=== PATIENT | male | born 1965 | race African-American/Black ===

== ENCOUNTER 2023-05-17 12:25 | Inpatient (IN) | payer OTHER ==
[2023-05-17 13:14] VITALS: BMI 22.5
[2023-05-17] MEDS ORDERED: IBUPROFEN 400 MG TABLET (FP) PO PRN (14:01)
[2023-05-17] MEDS ORDERED: POLYETHYLENE GLYCOL (HEALTHYLAX) 3350 17 GM PACKET PO PRN (14:01)
[2023-05-17] MEDS ORDERED: MAG HYDROX/AL HYDROX/SIMETH 30 ML UNIT-DOSE CUP PO PRN (14:01)
[2023-05-17] MEDS ORDERED: BISMUTH SUBSALICYLATE 524 MG/30 ML PO PRN (14:01)
[2023-05-17] MEDS ORDERED: ACETAMINOPHEN 325 MG TABLET (FP) PO PRN (14:01)
[2023-05-17] MEDS ORDERED: MAGNESIUM HYDROX 2400MG/30ML ORAL SUSPENSION 30 ML CUP PO PRN (14:01)
[2023-05-17] MEDS ORDERED: BENZOCAINE/MENTHOL (CHLORASEPTIC ) LOZENGE MM PRN (14:01)
[2023-05-17] MEDS ORDERED: guaiFENesin 600 MG TABLET.ER (FP) PO PRN (14:01)
[2023-05-17] MEDS ORDERED: ONDANSETRON *ODT* 4 MG TABLET SL PRN (14:01)
[2023-05-17] MEDS ORDERED: BENZONATATE 200 MG CAPSULE PO PRN (14:01)
[2023-05-17] MEDS ORDERED: hydrOXYzine PAMOATE 25 MG CAPSULE (FP) PO PRN (14:01)
[2023-05-17] MEDS ORDERED: NALOXONE HCL 0.4 MG/ML VIAL IM PRN (14:01)
[2023-05-17] MEDS ORDERED: LOPERAMIDE HCL 2 MG CAPSULE PO PRN (14:01)
[2023-05-17] MEDS ORDERED: IBUPROFEN 600 MG TABLET (FP) PO PRN (14:01)
[2023-05-17] MEDS ORDERED: DICYCLOMINE HCL 10 MG CAPSULE PO PRN (14:01)
[2023-05-17] MEDS ORDERED: NALOXONE HCL (KLOXXADO) 8 MG SPRAY NS PRN (14:01)
[2023-05-17] MEDS ORDERED: LORazepam 1 MG TABLET PO PRN (14:56)
[2023-05-17] MEDS ORDERED: ONDANSETRON *ODT* 4 MG TABLET ONE (14:57)
[2023-05-17] MEDS ORDERED: METHOCARBAMOL 500 MG TABLET ONE (14:57)
[2023-05-17] MEDS: PRENATAL VITAMINS W/ FOLIC ACID TABLET (FP) PO SCH (15:43)
[2023-05-17] MEDS: NICOTINE 21 MG/24 HOURS TOPICAL PATCH TD SCH (15:43)
[2023-05-17] MEDS: METHOCARBAMOL 500 MG TABLET PO PRN (15:44)
[2023-05-17] MEDS: LORazepam 2 MG TABLET PO SCH ×2 (17:37→22:50)
[2023-05-17] MEDS: THIAMINE HCL 100 MG TABLET (FP) PO SCH (22:50)
[2023-05-17] MEDS: MELATONIN 5 MG TABLETS PO SCH (22:50)
[2023-05-18] MEDS ORDERED: ALBUTEROL SO4 HFA INHALER IH ONE (01:05)
[2023-05-18] MEDS: LORazepam 2 MG TABLET PO SCH ×4 (04:54→22:52)
[2023-05-18] MEDS ORDERED: LISINOPRIL 20 MG TABLET PO ONE ×2 (06:00→10:00)
[2023-05-18] MEDS ORDERED: HYDROCHLOROTHIAZIDE 25 MG TABLET (FP) PO ONE ×2 (06:00→10:00)
[2023-05-18 09:24] LABS: HEMOGLOBIN 11.4 GM/dL (11.7-16.9); MCH 27.1 pg (25.7-33.7); MCHC 32.6 g/dl (32.0-35.9); MEAN CELL VOLUME 83.1 fl (80-96); MEAN PLT VOLUME 8.5 fl (7.5-11.1); PLATELET COUNT 273 10^3/uL (134-434); RBC 4.21 M/mm3 (4.00-5.60); RDW 14.3 % (11.9-15.9); WHITE BLOOD COUNT 4.5 K/mm3 (4.0-10.0)
[2023-05-18 09:25] LABS: POTASSIUM 4.3 mmol/L (3.5-5.1)
[2023-05-18 09:32] LABS: ALBUMIN 3.4 g/dl (3.4-5.0); BLOOD UREA NITROGEN 26.9 mg/dL (7-18)
[2023-05-18 09:35] LABS: BILIRUBIN,TOTAL 0.1 mg/dL (0.2-1)
[2023-05-18 09:39] LABS: CALCIUM 8.7 mg/dL (8.5-10.1)
[2023-05-18] MEDS: PRENATAL VITAMINS W/ FOLIC ACID TABLET (FP) PO SCH (10:18)
[2023-05-18] MEDS: amLODIPine BESYLATE 10 MG TABLET (FP) PO SCH (10:19)
[2023-05-18] MEDS: NICOTINE 21 MG/24 HOURS TOPICAL PATCH TD SCH (10:21)
[2023-05-18] MEDS ORDERED: PATIENT'S OWN MEDICATION (NON-FORMULARY) (Lisinopril/Hydrochlorothiazide [Lisinopril-Hctz PO SCH (10:45)
[2023-05-18] MEDS ORDERED: amLODIPine BESYLATE 10 MG TABLET (FP) PO SCH (10:45)
[2023-05-18] MEDS ORDERED: methaDONE HCL 10 MG TABLET (FOR DETOX USE ONLY) PO ONE (12:00)
[2023-05-18] MEDS: THIAMINE HCL 100 MG TABLET (FP) PO SCH (21:15)
[2023-05-18] MEDS: MELATONIN 5 MG TABLETS PO SCH (21:15)
[2023-05-18] MEDS: METHOCARBAMOL 500 MG TABLET PO PRN (21:15)
[2023-05-18] MEDS: cloNIDine HCL 0.1 MG TABLET PO PRN (21:18)
[2023-05-19] MEDS ORDERED: ALBUTEROL SO4 HFA INHALER IH PRN (01:46)
[2023-05-19] MEDS: LORazepam 1 MG TABLET PO SCH ×4 (05:42→22:44)
[2023-05-19] MEDS: cloNIDine HCL 0.1 MG TABLET PO PRN ×3 (05:44→22:44)
[2023-05-19] MEDS: PRENATAL VITAMINS W/ FOLIC ACID TABLET (FP) PO SCH (10:04)
[2023-05-19] MEDS: amLODIPine BESYLATE 10 MG TABLET (FP) PO SCH (10:05)
[2023-05-19] MEDS: LISINOPRIL 20 MG TABLET PO SCH (10:07)
[2023-05-19] MEDS: HYDROCHLOROTHIAZIDE 25 MG TABLET (FP) PO SCH (10:07)
[2023-05-19] MEDS: NICOTINE 21 MG/24 HOURS TOPICAL PATCH TD SCH (10:08)
[2023-05-19] MEDS: MELATONIN 5 MG TABLETS PO SCH (22:44)
[2023-05-19] MEDS: THIAMINE HCL 100 MG TABLET (FP) PO SCH (22:44)
[2023-05-20] MEDS ORDERED: LORazepam 0.5 MG TABLET PO PRN
[2023-05-20] MEDS: LORazepam 0.5 MG TABLET PO SCH ×4 (05:53→22:05)
[2023-05-20] MEDS ORDERED: methaDONE HCL 10 MG TABLET (FOR DETOX USE ONLY) PO ONE (10:00)
[2023-05-20] MEDS: PRENATAL VITAMINS W/ FOLIC ACID TABLET (FP) PO SCH (10:02)
[2023-05-20] MEDS: amLODIPine BESYLATE 10 MG TABLET (FP) PO SCH (10:02)
[2023-05-20] MEDS: LISINOPRIL 20 MG TABLET PO SCH (10:02)
[2023-05-20] MEDS: HYDROCHLOROTHIAZIDE 25 MG TABLET (FP) PO SCH (10:02)
[2023-05-20] MEDS: METHOCARBAMOL 500 MG TABLET PO PRN (10:02)
[2023-05-20] MEDS: NICOTINE 21 MG/24 HOURS TOPICAL PATCH TD SCH (10:03)
[2023-05-20] MEDS: FLUTICASONE/UMECLIDIN/VILANTER(200-62.5-25 TRELEGY ELLIPTA) INAHLER IH SCH (10:03)
[2023-05-20] MEDS ORDERED: NICOTINE POLACRILEX 2 MG GUM BUC PRN (22:03)
[2023-05-20] MEDS: MELATONIN 5 MG TABLETS PO SCH (22:06)
[2023-05-20] MEDS: THIAMINE HCL 100 MG TABLET (FP) PO SCH (22:06)
[2023-05-21] MEDS ORDERED: LORazepam 0.5 MG TABLET PO ONE (05:00)
[2023-05-21] MEDS: HYDROCHLOROTHIAZIDE 25 MG TABLET (FP) PO SCH (09:38)
[2023-05-21] MEDS: PRENATAL VITAMINS W/ FOLIC ACID TABLET (FP) PO SCH (09:38)
[2023-05-21] MEDS: FLUTICASONE/UMECLIDIN/VILANTER(200-62.5-25 TRELEGY ELLIPTA) INAHLER IH SCH (09:39)
[2023-05-21] MEDS: amLODIPine BESYLATE 10 MG TABLET (FP) PO SCH (09:39)
[2023-05-21] MEDS: LISINOPRIL 20 MG TABLET PO SCH (09:39)
[2023-05-21] MEDS: NICOTINE 21 MG/24 HOURS TOPICAL PATCH TD SCH ×2 (09:40→10:11)
[2023-05-21 09:45] VITALS: BP 109/80; PULSE 98; RESP 15; TEMP 98
[2023-05-22] MEDS ORDERED: methaDONE HCL 10 MG TABLET (FOR DETOX USE ONLY) PO ONE (10:00)
== END 2023-05-21 11:36 | disposition home or self-care (01) | DRG 773 ==
LOC: YASAS 12:25 → Y3N 15:18
PROVIDERS: ADMIT Allergy & Immunology; ATTEND Surgery
PROC: HZ2ZZZZ Detoxification Services for Substance Abuse Treatment (ICD-10-PCS; principal; 2023-05-17)
DX: F11.23 Opioid dependence with withdrawal (principal); F10.230 Alcohol dependence with withdrawal, uncomplicated; F14.20 Cocaine dependence, uncomplicated; F12.10 Cannabis abuse, uncomplicated; F17.210 Nicotine dependence, cigarettes, uncomplicated; I10 Essential (primary) hypertension; J45.909 Unspecified asthma, uncomplicated; Z28.310 Unvaccinated for COVID-19; Z28.9 Immunization not carried out for unspecified reason
CPT/HCPCS: 36415; 80053; 85027; 86780; 87635; 87811; Q0162

== ENCOUNTER 2023-06-14 15:35 | Inpatient (IN) | payer OTHER ==
[2023-06-14 18:59] VITALS: BMI 19.8
[2023-06-14] MEDS ORDERED: NALOXONE HCL (KLOXXADO) 8 MG SPRAY NS PRN (20:20)
[2023-06-14] MEDS ORDERED: BENZOCAINE/MENTHOL (CHLORASEPTIC ) LOZENGE MM PRN (20:20)
[2023-06-14] MEDS ORDERED: ALBUTEROL SO4 HFA INHALER IH PRN (20:20)
[2023-06-14] MEDS ORDERED: LOPERAMIDE HCL 2 MG CAPSULE PO PRN (20:20)
[2023-06-14] MEDS ORDERED: NICOTINE POLACRILEX 2 MG GUM BUC PRN (20:20)
[2023-06-14] MEDS ORDERED: MAG HYDROX/AL HYDROX/SIMETH 30 ML UNIT-DOSE CUP PO PRN (20:20)
[2023-06-14] MEDS ORDERED: POLYETHYLENE GLYCOL (HEALTHYLAX) 3350 17 GM PACKET PO PRN (20:20)
[2023-06-14] MEDS ORDERED: MAGNESIUM HYDROX 2400MG/30ML ORAL SUSPENSION 30 ML CUP PO PRN (20:20)
[2023-06-14] MEDS ORDERED: IBUPROFEN 600 MG TABLET (FP) PO PRN (20:20)
[2023-06-14] MEDS ORDERED: NALOXONE HCL 0.4 MG/ML VIAL IM PRN (20:20)
[2023-06-14] MEDS ORDERED: ACETAMINOPHEN 325 MG TABLET (FP) PO PRN (20:20)
[2023-06-14] MEDS ORDERED: methaDONE HCL 10 MG TABLET (FOR DETOX USE ONLY) PO ONE (20:20)
[2023-06-14] MEDS ORDERED: guaiFENesin 600 MG TABLET.ER (FP) PO PRN (20:20)
[2023-06-14] MEDS ORDERED: DICYCLOMINE HCL 10 MG CAPSULE PO PRN (20:20)
[2023-06-14] MEDS ORDERED: BISMUTH SUBSALICYLATE 524 MG/30 ML PO PRN (20:20)
[2023-06-14] MEDS ORDERED: BENZONATATE 200 MG CAPSULE PO PRN (20:20)
[2023-06-14] MEDS ORDERED: IBUPROFEN 400 MG TABLET (FP) PO PRN (20:20)
[2023-06-14] MEDS ORDERED: methaDONE HCL 10 MG TABLET (FOR DETOX USE ONLY) ONE (20:46)
[2023-06-14] MEDS: cloNIDine HCL 0.1 MG TABLET PO PRN (22:57)
[2023-06-14] MEDS: THIAMINE HCL 100 MG TABLET (FP) PO SCH (22:57)
[2023-06-14] MEDS: MELATONIN 5 MG TABLETS PO SCH (22:58)
[2023-06-15] MEDS: cloNIDine HCL 0.1 MG TABLET PO PRN ×3 (06:52→22:20)
[2023-06-15] MEDS ORDERED: ONDANSETRON 4 MG TABLET PO ONE (07:30)
[2023-06-15] MEDS ORDERED: ONDANSETRON 8 MG TABLET (FP) PO ONE (07:30)
[2023-06-15] MEDS: METHOCARBAMOL 500 MG TABLET PO PRN ×2 (09:31→17:37)
[2023-06-15] MEDS: amLODIPine BESYLATE 10 MG TABLET (FP) PO SCH (09:31)
[2023-06-15] MEDS: PRENATAL VITAMINS W/ FOLIC ACID TABLET (FP) PO SCH (09:31)
[2023-06-15] MEDS: NICOTINE 14 MG/24 HOURS TOPICAL PATCH TD SCH (10:51)
[2023-06-15 12:15] LABS: HEMATOCRIT 39.9 % (35.4-49); HEMOGLOBIN 13.1 GM/dL (11.7-16.9); MCH 26.8 pg (25.7-33.7); MCHC 32.8 g/dl (32.0-35.9); MEAN CELL VOLUME 81.7 fl (80-96); MEAN PLT VOLUME 7.9 fl (7.5-11.1); PLATELET COUNT 370 10^3/uL (134-434); RBC 4.89 M/mm3 (4.00-5.60); RDW 14.4 % (11.9-15.9); WHITE BLOOD COUNT 10.9 K/mm3 (4.0-10.0)
[2023-06-15 12:28] LABS: POTASSIUM 3.6 mmol/L (3.5-5.1)
[2023-06-15 12:36] LABS: ALBUMIN 3.6 g/dl (3.4-5.0); BLOOD UREA NITROGEN 19.6 mg/dL (7-18); CALCIUM 9.2 mg/dL (8.5-10.1)
[2023-06-15 12:39] LABS: CREATININE 0.9 mg/dL (0.55-1.3)
[2023-06-15 12:41] LABS: BILIRUBIN,TOTAL 0.6 mg/dL (0.2-1); TOT PROT 7.7 g/dl (6.4-8.2)
[2023-06-15] MEDS ORDERED: SUVOREXANT 5 MG TABLET PO PRN (22:00)
[2023-06-15] MEDS: MELATONIN 5 MG TABLETS PO SCH (22:20)
[2023-06-15] MEDS: THIAMINE HCL 100 MG TABLET (FP) PO SCH (22:20)
[2023-06-16] MEDS ORDERED: methaDONE HCL 10 MG TABLET (FOR DETOX USE ONLY) PO ONE (10:00)
[2023-06-16] MEDS: METHOCARBAMOL 500 MG TABLET PO PRN ×2 (10:24→21:49)
[2023-06-16] MEDS: amLODIPine BESYLATE 10 MG TABLET (FP) PO SCH (10:24)
[2023-06-16] MEDS: PRENATAL VITAMINS W/ FOLIC ACID TABLET (FP) PO SCH (10:24)
[2023-06-16] MEDS: NICOTINE 14 MG/24 HOURS TOPICAL PATCH TD SCH (10:26)
[2023-06-16] MEDS: MELATONIN 5 MG TABLETS PO SCH (21:48)
[2023-06-16] MEDS: THIAMINE HCL 100 MG TABLET (FP) PO SCH (21:48)
[2023-06-16] MEDS: cloNIDine HCL 0.1 MG TABLET PO PRN (21:50)
[2023-06-17] MEDS: amLODIPine BESYLATE 10 MG TABLET (FP) PO SCH (10:23)
[2023-06-17] MEDS: NICOTINE 14 MG/24 HOURS TOPICAL PATCH TD SCH (10:23)
[2023-06-17] MEDS: PRENATAL VITAMINS W/ FOLIC ACID TABLET (FP) PO SCH (10:23)
[2023-06-17] MEDS ORDERED: DOCUSATE SODIUM 100 MG CAPSULE (FP) PO PRN (15:55)
[2023-06-17] MEDS ORDERED: PATIENT'S OWN MEDICATION (NON-FORMULARY) (Lisinopril/Hydrochlorothiazide [Lisinopril-Hctz PO SCH (16:00)
[2023-06-17] MEDS ORDERED: FLUTICASONE/UMECLIDIN/VILANTER(200-62.5-25 TRELEGY ELLIPTA) INAHLER IH SCH (17:00)
[2023-06-17] MEDS: LISINOPRIL 20 MG TABLET PO SCH (17:22)
[2023-06-17] MEDS: HYDROCHLOROTHIAZIDE 25 MG TABLET (FP) PO SCH (17:22)
[2023-06-17] MEDS: MELATONIN 5 MG TABLETS PO SCH (22:13)
[2023-06-17] MEDS: THIAMINE HCL 100 MG TABLET (FP) PO SCH (22:14)
[2023-06-17] MEDS: METHOCARBAMOL 500 MG TABLET PO PRN (22:14)
[2023-06-17] MEDS: FLUTICASONE/UMECLIDIN/VILANTER(100-62.5-25 TRELEGY ELLIPTA) INAHLER IH SCH (22:43)
[2023-06-18] MEDS ORDERED: methaDONE HCL 10 MG TABLET (FOR DETOX USE ONLY) PO ONE (10:00)
[2023-06-18] MEDS: amLODIPine BESYLATE 10 MG TABLET (FP) PO SCH (10:03)
[2023-06-18] MEDS: PRENATAL VITAMINS W/ FOLIC ACID TABLET (FP) PO SCH (10:03)
[2023-06-18] MEDS: LISINOPRIL 20 MG TABLET PO SCH (10:03)
[2023-06-18] MEDS: HYDROCHLOROTHIAZIDE 25 MG TABLET (FP) PO SCH (10:04)
[2023-06-18] MEDS: NICOTINE 14 MG/24 HOURS TOPICAL PATCH TD SCH (10:05)
[2023-06-18] MEDS: FLUTICASONE/UMECLIDIN/VILANTER(100-62.5-25 TRELEGY ELLIPTA) INAHLER IH SCH (10:05)
[2023-06-18] MEDS: METHOCARBAMOL 500 MG TABLET PO PRN (10:08)
[2023-06-18 16:54] VITALS: BP 108/67; PULSE 77; RESP 18; TEMP 98.2
[2023-06-18] MEDS ORDERED: QUEtiapine FUMARATE 100 MG TABLET (FP) PO SCH (20:00)
[2023-06-18] MEDS ORDERED: SUVOREXANT 5 MG TABLET PO PRN (22:00)
== END 2023-06-18 19:06 | disposition other institution (70) | DRG 773 ==
LOC: YASAS 15:35 → Y3N 20:48
PROVIDERS: ADMIT Allergy & Immunology; ATTEND Surgery
PROC: HZ2ZZZZ Detoxification Services for Substance Abuse Treatment (ICD-10-PCS; principal; 2023-06-14)
DX: F11.23 Opioid dependence with withdrawal (principal); F14.20 Cocaine dependence, uncomplicated; F12.20 Cannabis dependence, uncomplicated; F17.210 Nicotine dependence, cigarettes, uncomplicated; F19.24 Other psychoactive substance dependence with psychoactive substance-induced mood disorder; G47.00 Insomnia, unspecified; I10 Essential (primary) hypertension; J45.20 Mild intermittent asthma, uncomplicated; Z28.310 Unvaccinated for COVID-19; Z28.9 Immunization not carried out for unspecified reason; Z56.0 Unemployment, unspecified; Z59.00 Homelessness unspecified
CPT/HCPCS: 36415; 80053; 85027; 86780; 87635; 87811; 93005; 93010

== ENCOUNTER 2023-06-18 19:14 | Inpatient (IN) | payer OTHER ==
[2023-06-18] MEDS ORDERED: IBUPROFEN 600 MG TABLET (FP) PO PRN (19:57)
[2023-06-18] MEDS ORDERED: NICOTINE POLACRILEX 2 MG GUM BUC PRN (19:57)
[2023-06-18] MEDS ORDERED: POLYETHYLENE GLYCOL (HEALTHYLAX) 3350 17 GM PACKET PO PRN (19:57)
[2023-06-18] MEDS ORDERED: NALOXONE HCL (KLOXXADO) 8 MG SPRAY NS PRN (19:57)
[2023-06-18] MEDS ORDERED: BENZOCAINE/MENTHOL (CHLORASEPTIC ) LOZENGE MM PRN (19:57)
[2023-06-18] MEDS ORDERED: COLLOIDAL OATMEAL 1 BAR EACH TP PRN (19:57)
[2023-06-18] MEDS ORDERED: P-EPHED 60MG/TRIPROLIDI 2.5MG TABLET PO PRN (19:57)
[2023-06-18] MEDS ORDERED: MAG HYDROX/AL HYDROX/SIMETH 30 ML UNIT-DOSE CUP PO PRN (19:57)
[2023-06-18] MEDS ORDERED: IBUPROFEN 400 MG TABLET (FP) PO PRN (19:57)
[2023-06-18] MEDS ORDERED: BENZONATATE 200 MG CAPSULE PO PRN (19:57)
[2023-06-18] MEDS ORDERED: LOPERAMIDE HCL 2 MG CAPSULE PO PRN (19:57)
[2023-06-18] MEDS ORDERED: guaiFENesin 600 MG TABLET.ER (FP) PO PRN (19:57)
[2023-06-18] MEDS ORDERED: NALOXONE HCL 0.4 MG/ML VIAL IVPUSH PRN (19:57)
[2023-06-18] MEDS ORDERED: hydrOXYzine PAMOATE 25 MG CAPSULE (FP) PO PRN (19:57)
[2023-06-18] MEDS ORDERED: MAGNESIUM HYDROX 2400MG/30ML ORAL SUSPENSION 30 ML CUP PO PRN (19:57)
[2023-06-18] MEDS ORDERED: ACETAMINOPHEN 325 MG TABLET (FP) PO PRN (19:57)
[2023-06-18] MEDS ORDERED: DOCUSATE SODIUM 100 MG CAPSULE (FP) PO PRN (19:58)
[2023-06-18] MEDS ORDERED: ALBUTEROL SO4 HFA INHALER IH PRN (19:58)
[2023-06-18] MEDS ORDERED: MELATONIN 5 MG TABLETS PO SCH (22:00)
[2023-06-18] MEDS: THIAMINE HCL 100 MG TABLET (FP) PO SCH (22:28)
[2023-06-19] MEDS ORDERED: PATIENT'S OWN MEDICATION (NON-FORMULARY) (Lisinopril/Hydrochlorothiazide [Lisinopril-Hctz PO SCH (10:00)
[2023-06-19] MEDS: PRENATAL VITAMINS W/ FOLIC ACID TABLET (FP) PO SCH (10:05)
[2023-06-19] MEDS: FLUTICASONE/UMECLIDIN/VILANTER(100-62.5-25 TRELEGY ELLIPTA) INAHLER IH SCH (10:05)
[2023-06-19] MEDS: METHOCARBAMOL 500 MG TABLET PO PRN (10:05)
[2023-06-19] MEDS: amLODIPine BESYLATE 10 MG TABLET (FP) PO SCH (10:06)
[2023-06-19] MEDS: LISINOPRIL 20 MG TABLET PO SCH (10:06)
[2023-06-19] MEDS: HYDROCHLOROTHIAZIDE 25 MG TABLET (FP) PO SCH (10:06)
[2023-06-19] MEDS ORDERED: FLU VACCINE (FLULAVAL) PF 60 MCG/0.5 ML SYRINGE 2023-2024 IM ONE (12:00)
[2023-06-19] MEDS: THIAMINE HCL 100 MG TABLET (FP) PO SCH (21:12)
[2023-06-19] MEDS: QUEtiapine FUMARATE 200 MG TABLET PO SCH (21:12)
[2023-06-20] MEDS: HYDROCHLOROTHIAZIDE 25 MG TABLET (FP) PO SCH (10:07)
[2023-06-20] MEDS: amLODIPine BESYLATE 10 MG TABLET (FP) PO SCH (10:07)
[2023-06-20] MEDS: PRENATAL VITAMINS W/ FOLIC ACID TABLET (FP) PO SCH (10:07)
[2023-06-20] MEDS: LISINOPRIL 20 MG TABLET PO SCH (10:08)
[2023-06-20] MEDS: FLUTICASONE/UMECLIDIN/VILANTER(100-62.5-25 TRELEGY ELLIPTA) INAHLER IH SCH (10:09)
[2023-06-20] MEDS: METHOCARBAMOL 500 MG TABLET PO PRN (10:09)
[2023-06-20] MEDS: QUEtiapine FUMARATE 200 MG TABLET PO SCH (23:02)
[2023-06-20] MEDS: THIAMINE HCL 100 MG TABLET (FP) PO SCH (23:02)
[2023-06-21] MEDS ORDERED: DICYCLOMINE HCL 10 MG CAPSULE PO PRN (09:20)
[2023-06-21] MEDS ORDERED: ONDANSETRON *ODT* 4 MG TABLET SL PRN (09:20)
[2023-06-21] MEDS ORDERED: BENZONATATE 200 MG CAPSULE PO PRN (09:20)
[2023-06-21] MEDS ORDERED: guaiFENesin 600 MG TABLET.ER (FP) PO PRN (09:20)
[2023-06-21] MEDS ORDERED: BISMUTH SUBSALICYLATE 524 MG/30 ML PO PRN (09:20)
[2023-06-21] MEDS ORDERED: BUPRENORPHINE HCL 150 MCG, BUPRENORPHINE HCL 75 MCG BC PRN (09:22)
[2023-06-21] MEDS ORDERED: BUPRENORPHINE HCL 150 MCG, BUPRENORPHINE HCL 75 MCG BC ONE (09:30)
[2023-06-21] MEDS: PRENATAL VITAMINS W/ FOLIC ACID TABLET (FP) PO SCH (09:53)
[2023-06-21] MEDS: LISINOPRIL 20 MG TABLET PO SCH (09:53)
[2023-06-21] MEDS: HYDROCHLOROTHIAZIDE 25 MG TABLET (FP) PO SCH (09:53)
[2023-06-21] MEDS: amLODIPine BESYLATE 10 MG TABLET (FP) PO SCH (09:54)
[2023-06-21 11:06] VITALS: RESP 18
[2023-06-21] MEDS: FLUTICASONE/UMECLIDIN/VILANTER(100-62.5-25 TRELEGY ELLIPTA) INAHLER IH SCH (11:38)
[2023-06-21] MEDS: QUEtiapine FUMARATE 200 MG TABLET PO SCH (21:37)
[2023-06-21] MEDS: THIAMINE HCL 100 MG TABLET (FP) PO SCH (21:37)
[2023-06-22] MEDS ORDERED: BUPRENORPHINE HCL 150 MCG, BUPRENORPHINE HCL 75 MCG BC PRN
[2023-06-22] MEDS: BUPRENORPHINE HCL 150 MCG, BUPRENORPHINE HCL 75 MCG BC SCH ×2 (06:29→17:50)
[2023-06-22] MEDS: PRENATAL VITAMINS W/ FOLIC ACID TABLET (FP) PO SCH (09:53)
[2023-06-22] MEDS: HYDROCHLOROTHIAZIDE 25 MG TABLET (FP) PO SCH (09:53)
[2023-06-22] MEDS: LISINOPRIL 20 MG TABLET PO SCH (09:53)
[2023-06-22] MEDS: FLUTICASONE/UMECLIDIN/VILANTER(100-62.5-25 TRELEGY ELLIPTA) INAHLER IH SCH (09:53)
[2023-06-22] MEDS: amLODIPine BESYLATE 10 MG TABLET (FP) PO SCH (09:53)
[2023-06-22] MEDS: METHOCARBAMOL 500 MG TABLET PO PRN (09:54)
[2023-06-22] MEDS: QUEtiapine FUMARATE 200 MG TABLET PO SCH (21:44)
[2023-06-22] MEDS: THIAMINE HCL 100 MG TABLET (FP) PO SCH (21:44)
[2023-06-23] MEDS: BUPRENORPHINE HCL 450 MCG FILM BC SCH ×2 (06:27→17:05)
[2023-06-23] MEDS: PRENATAL VITAMINS W/ FOLIC ACID TABLET (FP) PO SCH (10:19)
[2023-06-23] MEDS: amLODIPine BESYLATE 10 MG TABLET (FP) PO SCH (10:20)
[2023-06-23] MEDS: HYDROCHLOROTHIAZIDE 25 MG TABLET (FP) PO SCH (10:20)
[2023-06-23] MEDS: LISINOPRIL 20 MG TABLET PO SCH (10:20)
[2023-06-23] MEDS: METHOCARBAMOL 500 MG TABLET PO PRN (10:20)
[2023-06-23] MEDS: FLUTICASONE/UMECLIDIN/VILANTER(100-62.5-25 TRELEGY ELLIPTA) INAHLER IH SCH (10:48)
[2023-06-23] MEDS: QUEtiapine FUMARATE 200 MG TABLET PO SCH (21:37)
[2023-06-23] MEDS: THIAMINE HCL 100 MG TABLET (FP) PO SCH (21:37)
[2023-06-24] MEDS: BUPRENORPHINE/NALOXONE 4 MG/1 MG FILM PACKET SL SCH ×2 (06:13→17:55)
[2023-06-24] MEDS: LISINOPRIL 20 MG TABLET PO SCH (10:42)
[2023-06-24] MEDS: amLODIPine BESYLATE 10 MG TABLET (FP) PO SCH (10:42)
[2023-06-24] MEDS: HYDROCHLOROTHIAZIDE 25 MG TABLET (FP) PO SCH (10:42)
[2023-06-24] MEDS: PRENATAL VITAMINS W/ FOLIC ACID TABLET (FP) PO SCH (10:42)
[2023-06-24] MEDS: FLUTICASONE/UMECLIDIN/VILANTER(100-62.5-25 TRELEGY ELLIPTA) INAHLER IH SCH (10:43)
[2023-06-24] MEDS: QUEtiapine FUMARATE 200 MG TABLET PO SCH (22:08)
[2023-06-24] MEDS: THIAMINE HCL 100 MG TABLET (FP) PO SCH (22:08)
[2023-06-25 07:07] VITALS: BP 120/82; PULSE 98; TEMP 97.8
[2023-06-25] MEDS: PRENATAL VITAMINS W/ FOLIC ACID TABLET (FP) PO SCH (09:18)
[2023-06-25] MEDS: HYDROCHLOROTHIAZIDE 25 MG TABLET (FP) PO SCH (09:18)
[2023-06-25] MEDS: LISINOPRIL 20 MG TABLET PO SCH (09:19)
[2023-06-25] MEDS: amLODIPine BESYLATE 10 MG TABLET (FP) PO SCH (09:19)
== END 2023-06-25 09:25 | disposition home or self-care (01) | DRG 772 ==
LOC: YASAS 19:14 → Y3W 19:15
PROVIDERS: ADMIT Allergy & Immunology; ATTEND Psychiatry & Neurology Pain Medicine
PROC: HZ42ZZZ Group Counseling for Substance Abuse Treatment, Cognitive-Behavioral (ICD-10-PCS; principal; 2023-06-18)
DX: F11.20 Opioid dependence, uncomplicated (principal); F14.20 Cocaine dependence, uncomplicated; F12.20 Cannabis dependence, uncomplicated; F17.210 Nicotine dependence, cigarettes, uncomplicated; F31.9 Bipolar disorder, unspecified; F19.24 Other psychoactive substance dependence with psychoactive substance-induced mood disorder; G47.00 Insomnia, unspecified; I10 Essential (primary) hypertension; J45.20 Mild intermittent asthma, uncomplicated; Z59.00 Homelessness unspecified